=== PATIENT | female | born 1935 | race Two or more races ===

== ENCOUNTER 2019-10-23 02:51 | Emergency (ER) | payer OTHER ==
[~2019-10-23] VITALS: Ht 160 cm; Wt 58.1 kg
--- NOTE | 2019-10-23 03:00 | NUR ---
BIB EMS C/O "BAD DREAMS" PER EMS REPORT. NOTED DRY BLOOD ON THE R SIDE OF FACE WITH TRAUMA TO TONGUE. PT CURRENTLY ALERT AND RESPONSIVE. BREATHING EVENLY. NO SOB. VSS. PLACED ЕЛЕНА MONITOR ,
[2019-10-23] MEDS ORDERED: ONDANSETRON HCL/PF 4 MG/2 ML VIAL ONE (03:04)
[2019-10-23 03:21] LABS: BASOPHILS % (AUTO) 0.6 % (0.0-2.0); EOSINOPHILS % (AUTO) 0.3 % (0.0-6.0); HEMATOCRIT 36 % (33-45); LYMPHOCYTES % (AUTO) 24.1 % (20.0-44.0); MEAN CORPUSCULAR HGB CONC 33 g/dl (31.0-36.0); MEAN CORPUSCULAR VOLUME 95 fL (82-100); MONOCYTES # (AUTO) 0.4 /CMM (0.1-1.30); MONOCYTES % (AUTO) 5.2 % (2.0-12.0); NEUTROPHILS # (AUTO) 5.8 /CMM (1.8-8.9); NEUTROPHILS % (AUTO) 69.8 % (43.0-81.0); PLATELET COUNT (AUTO) 178 /CMM (150-450); WHITE BLOOD COUNT (AUTO) 8.3 K/uL (4.3-11.0)
[2019-10-23] MEDS ORDERED: ONDANSETRON HCL/PF 4 MG/2 ML VIAL IV ONE (03:30)
[2019-10-23 03:32] LABS: CARBON DIOXIDE 23 mmol/L (21-32); CHLORIDE 103 mmol/L (98-107); CREATININE 1.1 mg/dL (0.6-1.3); GLUCOSE 154 mg/dL (74-106); POTASSIUM 3.8 mmol/L (3.5-5.1); SODIUM SERUM 139 mmol/L (136-145); UREA NITROGEN, BLOOD 22 mg/dL (7-18)
[2019-10-23] MEDS ORDERED: LORAZEPAM INJ 2 MG/ML VIAL ONE (03:41)
--- NOTE | 2019-10-23 03:43 | NUR ---
pt w/ an episode of seizure w/ verbal order for ativan 2mg ivp x one. given Addendum: 10/23/19 at 0444 by HOLLIS verbal order from Dr. Day
[2019-10-23 03:45] LABS: ALANINE AMINOTRANSFERASE 21 U/L (12-78); ALBUMIN 3.3 g/dL (3.4-5.0); ALKALINE PHOSPHATASE 36 U/L (46-116); ASPARTATE AMINOTRANSFERASE 33 U/L (15-37); B-TYPE NATRIURETIC PEPTIDE 153 PG/ML (0-125); BILIRUBIN,DIRECT 0.1 mg/dL (0.0-0.2); BILIRUBIN,TOTAL 0.3 mg/dL (0.2-1.0); TOTAL PROTEIN, SERUM 7.6 g/dL (6.4-8.2)
--- NOTE | 2019-10-23 03:53 | NUR ---
[facility] CALLED.
[2019-10-23] MEDS ORDERED: LORAZEPAM INJ 2 MG/ML VIAL IV ONE (04:00)
[2019-10-23] MEDS ORDERED: CEFTRIAXONE 1GM BAG (ER ONLY) 1 GM/50 ML PIGGYBACK IV ONE (04:00)
[2019-10-23] MEDS ORDERED: AZITHROMYCIN 500 MG in IV D5W 250 ML IV ONE (04:00)
[2019-10-23] MEDS ORDERED: CEFTRIAXONE 1GM BAG (ER ONLY) 50 ML IV ONE (04:09)
[2019-10-23] MEDS ORDERED: AZITHROMYCIN 500 MG VIAL ONE (04:09)
--- NOTE | 2019-10-23 04:12 | NUR ---
end time for rocephine: [id number]
--- NOTE | 2019-10-23 04:21 | NUR ---
CALL FROM [facility]. PT ACCEPTED TO [facility] ER BY DR MULTANI. # FOR REPORT [phone]. ALS ETA [phone]
--- NOTE | 2019-10-23 05:02 | NUR ---
[facility]
--- NOTE | 2019-10-23 05:04 | NUR ---
REPORT GIVEN TO TRUN KRIS CONLEY 73 AT THE BED SIDE
[2019-10-23 05:14] VITALS: BP 124/68
--- NOTE | 2019-10-23 05:15 | NUR ---
CALLED PT'S SON AND MADE HIM AWARE OF THE TRANSFER AND OBTAINED A VERBAL CONSENT OVER THE PHONE
--- NOTE | 2019-10-23 05:23 | NUR ---
PT WAS PICKED UP BY [facility] VIA GURNEY UNDER ACLS,
== END 2019-10-23 05:25 | disposition short-term general hospital (02) ==
LOC: ER 02:58 → EDSEX 02:58 → ER 05:25
DX: R56.9 Unspecified convulsions (principal); J18.9 Pneumonia, unspecified organism; R41.82 Altered mental status, unspecified; G30.9 Alzheimer's disease, unspecified; F02.80 Dementia in other diseases classified elsewhere, unspecified severity, without behavioral disturbance, psychotic disturbance, mood disturbance, and anxiety; I10 Essential (primary) hypertension
CPT/HCPCS: 36415; 70450; 71045; 80048; 80076; 83880; 84484; 85025; 87040; 93005; 96365; 96367; 96375; 99285; J0456; J0696; J2060; J2405; J7060